=== PATIENT | female | born 1965 | race Two or more races ===

== ENCOUNTER 2018-07-14 16:15 | Emergency (ER) | payer OTHER ==
[~2018-07-14] VITALS: Ht 157.5 cm; Wt 70.3 kg
[2018-07-14 16:22] VITALS: Ht 157.5 cm; Wt 70.3 kg
[2018-07-14 19:21] LABS: BASOPHIL % 0.3 % (0-2); PLATELET COUNT 313 x10^3mcL (130-400)
[2018-07-14 19:22] LABS: RED CELL DISTRIBUTION WIDTH 15.2 % (11.5-14.5)
[2018-07-14 19:30] LABS: CALCIUM 8.8 mg/dL (8.5-10.1); CARBON DIOXIDE 31.5 mmol/L (21-32); CHLORIDE SERUM 101 mmol/L (98-107); CREATININE SERUM 0.7 mg/dL (0.6-1.0); GFR1 > 60 mL/min; GLUCOSE SERUM 207 mg/dL (74-106); POTASSIUM SERUM 3.6 mmol/L (3.5-5.1); SODIUM SERUM 139 mmol/L (136-145)
[2018-07-14 19:42] LABS: ALBUMIN 3.6 g/dL (3.4-5.0); ALKALINE PHOSPHATASE 87 U/L (46-116); ALT/SGPT 41 U/L (14-59); AST/SGOT 20 U/L (15-37); BILIRUBIN TOTAL 0.22 mg/dL (0.20-1.00); T4(THYROXINE) 9.9 ug/dL (4.7-13.3); TOTAL PROTEIN, SERUM 8.2 g/dL (6.4-8.2)
[2018-07-14 21:35] VITALS: BP 154/78
== END 2018-07-14 21:35 | disposition home or self-care (01) ==
LOC: ED 16:15
PROVIDERS: Emergency Medicine
DX: F41.9 Anxiety disorder, unspecified (principal); N39.0 Urinary tract infection, site not specified; I10 Essential (primary) hypertension; E11.9 Type 2 diabetes mellitus without complications; G89.29 Other chronic pain; M25.569 Pain in unspecified knee; Z88.0 Allergy status to penicillin; Z88.2 Allergy status to sulfonamides; Z88.1 Allergy status to other antibiotic agents
CPT/HCPCS: J1885; J7030

== ENCOUNTER 2019-05-24 10:03 | Emergency (ER) | payer OTHER ==
[~2019-05-24] VITALS: Ht 162.6 cm; Wt 73.5 kg
[2019-05-24 10:22] VITALS: Ht 162.6 cm; Wt 73.5 kg
[2019-05-24 12:13] VITALS: BP 124/77
== END 2019-05-24 12:13 | disposition home or self-care (01) ==
LOC: ED 10:03
DX: M54.5 Low back pain (principal); I10 Essential (primary) hypertension; E11.9 Type 2 diabetes mellitus without complications; G89.29 Other chronic pain; Z88.0 Allergy status to penicillin; Z88.2 Allergy status to sulfonamides; Z88.1 Allergy status to other antibiotic agents
CPT/HCPCS: 82962; J2270; Q0162